=== PATIENT | male | born 1990 | race Caucasian/White ===

== ENCOUNTER 2016-08-19 17:22 | Emergency (ER) | payer OTHER ==
[~2016-08-19] VITALS: Ht 172.7 cm; Wt 90.8 kg
[~2016-08-19 17:22] MED LIST: ATARAX,VISTARIL25 MG PO; BENADRYL25 MG PO; COGENTIN1 MG PO; DEPAKOTE250 MG PO; DEPAKOTE500 MG PO; DOXYCYCLINE HY100 M3 PO; Depakote PO; HYDROXYZINE HCL50 MG PO; KENALOG,ARISTOC80 GM TP; MEDROL DOSEPAK4 MG PO; NAPROSYN500 MG PO; NORCO 5/3251 TABLET PO; PREDNISONE50 MG PO; SEROQUEL300 MG PO; SEROquel PO
[2016-08-19 18:04] VITALS: BP 151/87
[2016-08-19] MEDS ORDERED: ATARAX,VISTARIL50 MG PO (19:39)
[2016-08-19] MEDS ORDERED: MEDROL DOSEPAK4 MG PO (19:39)
== END 2016-08-19 19:49 | disposition home or self-care (01) ==
LOC: EME 17:22
DX: L23.7 Allergic contact dermatitis due to plants, except food (principal); Z87.891 Personal history of nicotine dependence
CPT/HCPCS: 99281; 99282

== ENCOUNTER 2016-09-04 21:35 | Emergency (ER) | payer OTHER ==
[~2016-09-04] VITALS: Ht 172.7 cm; Wt 88.9 kg
[~2016-09-04 21:35] MED LIST changes: +ATARAX,VISTARIL50 MG PO
[2016-09-04] MEDS ORDERED: ATARAX,VISTARIL25 MG PO (23:46)
[2016-09-04] MEDS ORDERED: PREDNISONE20 MG PO (23:46)
[2016-09-04] MEDS ORDERED: MITRAZOL 2% CRE45 GM TP (23:48)
[2016-09-04 23:54] VITALS: BP 148/76
== END 2016-09-05 | disposition home or self-care (01) ==
LOC: EME 21:35
DX: L25.9 Unspecified contact dermatitis, unspecified cause (principal); B35.6 Tinea cruris; Z87.891 Personal history of nicotine dependence
CPT/HCPCS: 99281; 99283; J7512

== ENCOUNTER 2017-01-23 10:09 | Emergency (ER) | payer OTHER ==
[~2017-01-23] VITALS: Ht 175.3 cm; Wt 96.4 kg
[~2017-01-23 10:09] MED LIST changes: +MITRAZOL 2% CRE45 GM TP; +PREDNISONE20 MG PO
[2017-01-23 10:24] VITALS: BP 148/83
[2017-01-23] MEDS ORDERED: OCEAN NASAL 0.645 ML BOTH NARES (11:28)
[2017-01-23] MEDS ORDERED: ZANTAC150 MG PO (11:28)
== END 2017-01-23 11:45 | disposition home or self-care (01) ==
LOC: EME 10:09
DX: J02.8 Acute pharyngitis due to other specified organisms (principal); B97.89 Other viral agents as the cause of diseases classified elsewhere; K21.9 Gastro-esophageal reflux disease without esophagitis; R19.6 Halitosis; Z87.891 Personal history of nicotine dependence
CPT/HCPCS: 87651 90; 99281; 99284